=== PATIENT | female | born 1990 | race Asian ===

== ENCOUNTER → 2020-08-06 15:43 | Outpatient (BNVA) | payer BC, SELFPAY | PROVIDERS: Visit Provider Nurse Practitioner Family | DX: Z20.828 Contact with and (suspected) exposure to other viral communicable diseases (principal); J06.9 Acute upper respiratory infection, unspecified | CPT/HCPCS: 87635 ==

== ENCOUNTER → 2022-08-11 14:00 | Outpatient (BNVA) | payer OTHER, SELFPAY | PROVIDERS: Visit Provider Nurse Practitioner Women's Health | DX: Z34.90 Encounter for supervision of normal pregnancy, unspecified, unspecified trimester (principal); Z32.00 Encounter for pregnancy test, result unknown | CPT/HCPCS: 81025; 84315 ==

== ENCOUNTER → 2022-09-04 09:40 | Outpatient (BNVA) | payer OTHER, MEDICAID, SELFPAY | PROVIDERS: Visit Provider Obstetrics & Gynecology | DX: Z34.01 Encounter for supervision of normal first pregnancy, first trimester (principal) | CPT/HCPCS: 80307; 84315; 84443; 85027; 86592; 86762; 86803; 86850; 86900; 87086; 87340; 87491; 87591; 87624; 87661; 87806 ==

== ENCOUNTER → 2022-12-21 14:40 | Outpatient (BNVA) | payer OTHER, BC, MEDICAID, SELFPAY | PROVIDERS: Visit Provider Obstetrics & Gynecology | DX: Z34.00 Encounter for supervision of normal first pregnancy, unspecified trimester (principal) | CPT/HCPCS: 82950; 84315; 85025 ==

== ENCOUNTER → 2022-12-31 08:15 | Outpatient (BNVA) | payer OTHER, BC, MEDICAID, SELFPAY | PROVIDERS: Visit Provider Obstetrics & Gynecology | DX: Z34.00 Encounter for supervision of normal first pregnancy, unspecified trimester (principal) | CPT/HCPCS: 82951; 82952 ==

== ENCOUNTER 2023-01-14 16:05 | Outpatient (CLI) | payer OTHER, BC, MEDICAID, SELFPAY ==
[2023-01-14 16:13] VITALS: BP 109/76; PULSE 95
[2023-01-14 16:33] VITALS: BP 118/78; PULSE 81
[2023-01-14 16:55] VITALS: BP 118/78; PULSE 81
== END 2023-01-14 16:50 | disposition home or self-care (01) ==
LOC: OPOB 16:09 → OBGYN 16:10
PROVIDERS: Visit Provider Obstetrics & Gynecology
DX: Z36.9 Encounter for antenatal screening, unspecified (principal)
CPT/HCPCS: 59025; 84315; 99211

== ENCOUNTER 2023-01-21 15:04 | Outpatient (CLI) | payer OTHER, BC, MEDICAID, SELFPAY ==
[2023-01-21 15:04] VITALS: BMI 25.7
[2023-01-21 15:15] VITALS: RESP 17
[2023-01-21 15:18] VITALS: BP 122/75; PULSE 89
[2023-01-21 15:38] VITALS: BP 115/77; PULSE 93
== END 2023-01-21 15:52 | disposition home or self-care (01) ==
LOC: OPOB 15:07 → OBGYN 15:08
PROVIDERS: Visit Provider Obstetrics & Gynecology
DX: O24.419 Gestational diabetes mellitus in pregnancy, unspecified control (principal); Z3A.00 Weeks of gestation of pregnancy not specified
CPT/HCPCS: 59025; 99211

== ENCOUNTER 2023-01-28 16:06 | Outpatient (CLI) | payer OTHER, BC, MEDICAID, SELFPAY ==
[2023-01-28 16:10] VITALS: BMI 25.7
[2023-01-28 16:24] VITALS: BP 115/75; PULSE 90
== END 2023-01-28 16:53 | disposition home or self-care (01) ==
LOC: OPOB 16:09 → OBGYN 16:13
PROVIDERS: Visit Provider Obstetrics & Gynecology
DX: O24.419 Gestational diabetes mellitus in pregnancy, unspecified control (principal); Z3A.00 Weeks of gestation of pregnancy not specified
CPT/HCPCS: 59025; 84315; 85025

== ENCOUNTER 2023-02-04 16:20 | Outpatient (CLI) | payer OTHER, BC, MEDICAID, SELFPAY ==
[2023-02-04 16:20] VITALS: BMI 25.7
[2023-02-04 16:32] VITALS: BP 126/74; PULSE 86; TEMP 36.6
[2023-02-04 16:49] VITALS: RESP 16
[2023-02-04 17:00] VITALS: BP 126/74; PULSE 86; RESP 16; TEMP 36.6
== END 2023-02-04 17:00 | disposition home or self-care (01) ==
LOC: OPOB 16:24 → OBGYN 16:25
PROVIDERS: Visit Provider Obstetrics & Gynecology
DX: O24.419 Gestational diabetes mellitus in pregnancy, unspecified control (principal); Z3A.00 Weeks of gestation of pregnancy not specified
CPT/HCPCS: 59025; 99211

== ENCOUNTER 2023-02-11 16:00 | Outpatient (CLI) | payer OTHER, BC, MEDICAID, SELFPAY ==
[2023-02-11 16:00] VITALS: BMI 26.5
[2023-02-11 16:17] VITALS: BP 128/79; PULSE 85
[2023-02-11 16:37] VITALS: BP 114/76; PULSE 86
== END 2023-02-11 16:45 | disposition home or self-care (01) ==
LOC: OPOB 16:06 → OBGYN 16:07
PROVIDERS: Visit Provider Obstetrics & Gynecology
DX: O24.419 Gestational diabetes mellitus in pregnancy, unspecified control (principal); Z3A.00 Weeks of gestation of pregnancy not specified
CPT/HCPCS: 59025; 84315

== ENCOUNTER 2023-02-18 15:52 | Outpatient (CLI) | payer OTHER, BC, MEDICAID, SELFPAY ==
[2023-02-18 15:52] VITALS: BMI 27.0
[2023-02-18 16:06] VITALS: BP 120/75; PULSE 91
[2023-02-18 16:21] VITALS: BP 119/73; PULSE 100
[2023-02-18 16:25] VITALS: RESP 17
== END 2023-02-18 16:30 | disposition home or self-care (01) ==
LOC: OPOB 15:57 → OBGYN 15:58
PROVIDERS: Visit Provider Obstetrics & Gynecology
DX: O24.419 Gestational diabetes mellitus in pregnancy, unspecified control (principal); Z3A.00 Weeks of gestation of pregnancy not specified
CPT/HCPCS: 59025

== ENCOUNTER → 2023-02-19 08:55 | Outpatient (BNVA) | payer OTHER, BC, MEDICAID, SELFPAY | PROVIDERS: Visit Provider Obstetrics & Gynecology | DX: Z01.419 Encounter for gynecological examination (general) (routine) without abnormal findings (principal); Z34.00 Encounter for supervision of normal first pregnancy, unspecified trimester | CPT/HCPCS: 84315; 87081 ==

== ENCOUNTER 2023-02-25 16:20 | Outpatient (CLI) | payer OTHER, BC, MEDICAID, SELFPAY ==
[2023-02-25 16:29] VITALS: BP 130/84; PULSE 91
[2023-02-25 16:34] VITALS: RESP 15
[2023-02-25 16:35] VITALS: BMI 26.9
[2023-02-25 16:44] VITALS: BP 127/84; PULSE 78
[2023-02-25 16:55] VITALS: BP 125/84; PULSE 85
== END 2023-02-25 16:57 | disposition home or self-care (01) ==
LOC: OPOB 16:24 → OBGYN 16:25
PROVIDERS: Visit Provider Obstetrics & Gynecology
DX: O24.419 Gestational diabetes mellitus in pregnancy, unspecified control (principal); Z3A.00 Weeks of gestation of pregnancy not specified
CPT/HCPCS: 59025; 84315

== ENCOUNTER 2023-03-04 17:02 | Outpatient (CLI) | payer OTHER, BC, MEDICAID, SELFPAY ==
[2023-03-04 17:02] VITALS: BMI 27.3
[2023-03-04 17:27] VITALS: BP 114/76; PULSE 104
[2023-03-04 17:42] VITALS: BP 112/75; PULSE 109
[2023-03-04 17:57] VITALS: BP 119/80; PULSE 104
== END 2023-03-04 18:03 | disposition home or self-care (01) ==
LOC: OPOB 17:18 → OBGYN 17:22
PROVIDERS: Visit Provider Obstetrics & Gynecology
DX: O24.419 Gestational diabetes mellitus in pregnancy, unspecified control (principal); Z3A.00 Weeks of gestation of pregnancy not specified
CPT/HCPCS: 59025; 84315

== ENCOUNTER 2023-03-07 08:19 | Inpatient (IN) | payer OTHER, BC, MEDICAID, SELFPAY ==
[2023-03-07] VITALS (19 sets, daily range): BP systolic 112–139; BP diastolic 58–82; PULSE 85–109; RESP 16; BMI 27.4
[2023-03-07 09:50] LABS: Basophils % 0.7 %; Eosinophils # 0.4 10^3/uL (0.0-0.8); Eosinophils % 6.7 %; Hemoglobin 22.3 g/dL (11.5-15.3); Lymphocytes # 0.5 10^3/uL (0.8-4.8); Lymphocytes % 8.3 %; Mean Corpuscular HGB Conc 32.8 g/dL (30.0-36.0); Mean Corpuscular Hemoglobin 29.9 pg (28.0-34.0); Mean Corpuscular Volume 91.3 fl (81-99); Mean Platelet Volume 11.1 fL (7.4-10.4); Monocytes # 0.2 10^3/uL (0.2-0.9); Monocytes % 4.4 %; Neutrophils # 4.27 10^3/uL (1.8-7.7); Nucleated Red Blood Cells % 0 %; Platelet Count 44 10^3/cmm (130-400); Red Blood Count 7.45 10^6/uL (4.1-5.3); White Blood Count 5.4 10^3/uL (4.0-10.0)
[2023-03-07] MEDS: dextrose 5%-lactated ringers 1,000 ML 125 ML IV (09:56)
[2023-03-07] MEDS: miSOPROStol 100 mcg tablet 25 MCG VAGINAL ×3 (09:56→18:11)
[2023-03-07] MEDS: ampicillin 2,000 MG in sodium chloride 0.9% (plus) 50 ML 100 MG IV (09:56)
[2023-03-07 12:59] LABS: Monocytes % 5.1 %; Nucleated Red Blood Cells % 0 %
[2023-03-07 13:07] LABS: Basophils # 0.1 10^3/uL (0.0-0.1); Basophils % 0.9 %; Eosinophils # 0.5 10^3/uL (0.0-0.8); Eosinophils % 4.9 %; Lymphocytes # 1.5 10^3/uL (0.8-4.8); Lymphocytes % 14.3 %; Mean Corpuscular HGB Conc 31.5 g/dL (30.0-36.0); Mean Corpuscular Hemoglobin 29.8 pg (28.0-34.0); Mean Corpuscular Volume 94.7 fl (81-99); Mean Platelet Volume 11.7 fL (7.4-10.4); Monocytes # 0.5 10^3/uL (0.2-0.9); Neutrophils % 73.7 %; Red Blood Count 4.19 10^6/uL (4.1-5.3); Red Cell Distribution Width 13.3 % (12.1-15.1); White Blood Count 10.3 10^3/uL (4.0-10.0)
[2023-03-07 13:11] LABS: Hematocrit 39.7 % (37.0-47.0)
[2023-03-07 13:15] LABS: Hemoglobin 12.5 g/dL (11.5-15.3)
[2023-03-07 13:21] LABS: Platelet Count 182 10^3/cmm (130-400)
[2023-03-07] MEDS: ampicillin 1,000 MG in sodium chloride 0.9% (plus) 50 ML 100 MG IV ×3 (14:09→22:15)
--- NOTE | 2023-03-07 15:58 | PM.OPHPUD ---
Labor & Delivery H&P Update Date of Procedure: March 07, 2023 Date H&P Performed: 03/05/23 H&P update information: I have reviewed H&P completed within last 30 days, I have examined patient prior to procedure and No changes to prior documentation Admission Diagnosis: @ 39w0d, GDM, GBS positive, anxiety Related Problem List Diagnoses (1) GBS (group B Streptococcus carrier), +RV culture, currently : (2) Gestational diabetes: (3) Supervision of normal first : (4) Anxiety:
[2023-03-08] VITALS (81 sets, daily range): BP systolic 104–183; BP diastolic 55–86; PULSE 77–125; RESP 16; TEMP 36.9–37.9; O2SAT 92–100
[2023-03-08] MEDS: ampicillin 1,000 MG in sodium chloride 0.9% (plus) 50 ML 100 MG IV ×4 (02:14→15:38)
[2023-03-08 03:34] LABS: Glucose Point of Care 113 mg/dL (70-110)
[2023-03-08] MEDS: dextrose 5%-lactated ringers 1,000 ML 125 ML IV (06:07)
[2023-03-08 09:25] LABS: Glucose Point of Care 87 mg/dL (70-110)
--- NOTE | 2023-03-08 14:05 | ANES.PREANE2 ---
Pre-Anesthetic Assessment Height/Weight: Height 1.6 m Weight 70.307 kg Temp Pulse Resp BP Pulse Ox O2 Del Method 98.4 F 93 16 121/65 92 Room Air 03/08/23 00:11 03/08/23 13:59 03/08/23 08:19 03/08/23 13:59 03/08/23 13:51 03/07/23 08:23 epidural Familial anesthetic complications: none Was Beta Mick taken within 24 hours: N/A Was Clonidine taken within 24 hours: N/A Social No alcohol and No tobacco Exam alert, oriented x 3, clear to auscultation bilaterally and regular rate & rhythm Airway Mallampati: Class I Dentition: full Metabolic Diabetes Mellitus (gestational) Anesthetic Plan ASA status: 3 Anesthesia: Regional (specify below) Risk of > 500 ml blood loss (7ml/kg in children): Yes, adequate IV access and fluids planned Medications/Allergies Home Medications Medication Instructions Recorded Confirmed Last Taken Type PNV 153-FA 400 mcg-om3 35 mg-dha tab PO 09/04/22 03/04/23 Unknown History 25 mg-epa 5 mg-fish oil chew tablet ( Gummies) ferrous sulfate 325 mg (65 mg 325 mg PO DAILY 09/04/22 03/04/23 Unknown History iron) tablet buspirone 5 mg tablet 5 mg PO BID #60 tabs 11/30/22 03/04/23 Unknown Rx blood sugar diagnostic (Accu-Chek #100 ea 01/01/23 03/04/23 Unknown Rx Guide test strips) lancets 31 gauge (Comfort Touch #100 ea 01/01/23 03/04/23 Unknown Rx Ultra Thin Lancets) blood-glucose meter (Accu-Chek #1 ea 01/27/23 03/04/23 Unknown Rx Guide Glucose Meter) Allergies Allergy/AdvReac Type Severity Reaction Status Date / Time No Known Allergies Allergy Verified 02/25/23 16:12 Current Medications Generic Name Dose Route Start Last Admin Trade Name Freq PRN Reason Stop Dose Admin Dextrose/Lactated Ringer's 1,000 mls @ 125 mls/hr 03/07/23 08:30 03/08/23 06:07 Dextrose 5%-Lactated Ringers IV 125 mls/hr .Q8H TIERRA Administration Ampicillin Sodium 1,000 mg/ 50 mls @ 100 mls/hr 03/07/23 12:30 03/08/23 11:08 Sodium Chloride IV 100 mls/hr Q4H TIERRA Administration Protocol Oxytocin 30 unit/ Sodium 503 mls @ 1 mls/hr 03/08/23 00:30 03/08/23 06:40 Chloride IV 5 mls/hr .Q24H TIERRA 5 mls/hr Titration Protocol Misoprostol 25 mcg 03/07/23 09:22 03/07/23 18:11 Misoprostol 100 Mcg Tablet VAGINAL 25 mcg Q4H PRN Administration cervical ripening PFSH Anesthesia Medical History No pertinent past medical history Surgical History History of rhinoplasty Family History Denies family history of Colon cancer Ovarian cancer Diabetes Heart disease Hypercholesteremia Breast cancer Hypertension Uterine cancer Thyroid disease Stroke Female Reproductive History : 1 Data Anesthesia 03/07/23 12:43 Short CBC 03/07/23 03/07/23 Range/Units 09:30 12:43 WBC 5.4 10.3 H (4.0-10.0) 10^3/uL Hgb 22.3 H 12.5 D (11.5-15.3) g/dL Hct 68.0 H 39.7 D (37.0-47.0) % MCV 91.3 94.7 (81-99) fl Plt Count 44 L 182 D (130-400) 10^3/cmm Neut % (Auto) 79.0 73.7 % Neut # (Auto) 4.27 7.60 (1.8-7.7) 10^3/uL Cardiac Studies: No Data to Display
--- NOTE | 2023-03-08 14:06 | ANES.PROC ---
Anesthesia Procedures Procedure/Date: 03/08/23 Epidural: Time Out Performed: Yes Consents Signed: Procedure Consent Consent: requested by attending/covering physician, from patient, from other, risks and benefits reviewed and patient agrees to proceed Lumbar Level: L3-L4 Epidural position: sitting Epidural procedure: sterile prep of area, 1% lidocaine to numb the area, 18 g needle, negative for paresthesia passed, neg for paresthesia, test dose given, 1.5% xylocaine 1:200k epi ( 5 cc), 0.2% Ropivacaine bolus ml (5 cc), placed PCEA, no systemic response, sterile dressing applied, L.U.D. no apparent complications and 0.2% Ropiavacaine @ mls/hr (10) Additional Comments: Ruth at 5 cm, threaded to 11 cm
[2023-03-08] MEDS: ROPivacaine syringe 100 MG/50 ML SYRINGE 10 MG EPIDURAL ×3 (14:30→21:47)
--- NOTE | 2023-03-08 16:13 | P.PN_ITS ---
Vitals/I&O/Wt Last Vital Signs Temp 98.4 F 03/08/23 00:11 Pulse 95 03/08/23 16:10 Resp 16 03/08/23 08:19 BP 129/64 03/08/23 16:10 Pulse Ox 92 03/08/23 13:51 O2 Del Method Room Air 03/07/23 08:23 03/08/23 03/08/23 03/08/23 06:59 14:59 22:59 Intake Total 115.334 / 1265.334 50 / 50 Output Total 100 / 100 Balance 15.334 / 1165.334 50 / 50 Weight last 48 hrs Weight 155 lb Physical Exam Narrative: The patient has received three doses of cytotec over night. She had low dose pitocin started. She has made some cervical change. She is now 3/75/-2. status continues to be overall very good. She has received multiple doses of ampicillin Const: COMMON NORMALS: no acute distress, average body habitus, patient or iented x3, no limitations, healthy appearing, alert and well nourished Extremity: COMMON NORMALS: no calf tenderness Neuro: COMMON NORMALS: patient oriented x3 SENSORIUM/ORIENTATION: Yes alert Data 03/07/23 12:43 A&P Assessment and plan (1) Supervision of normal first : AROM clear today continue with pitocin induction. anticipate normal spontaneous delivery Attestations Medical Necessity Statement*: The patient has yet to deliver. She will be here for two midnights, at least. Coding Level of Care Code Acute Code for Chg Fwd Diagnoses Supervision of normal first Z34.00
[2023-03-08] MEDS: acetaminophen 325 mg Tablet 650 MG PO (18:57)
[2023-03-08] MEDS: miSOPROStol 200 mcg Tablet 800 MCG PR (23:57)
[2023-03-08] MEDS: methylergonovine 0.2 mg/mL INJ 1 mL IM (23:59)
[2023-03-09] VITALS (12 sets, daily range): BP systolic 119–162; BP diastolic 60–96; PULSE 85–134; RESP 15–17; TEMP 36.4–36.9
--- NOTE | 2023-03-09 00:20 | PM.DELIVERY ---
Delivery Note: Date of delivery: March 09, 2023 Pre-delivery diagnoses: iup@ 39 weeks, 1 day. GDM, GBS positive Post-delivery diagnoses: same-delivered Procedure: with vacuum assist. Delivering Physician: Jazmin Estimated blood loss (mL): 200 Findings: term male in the straight OA presentation Pre-Delivery Course: The patient was admitted for induction at term. She received three doses of cytotec and then had pitocin started. She received GBS prophylaxis from the time of induction. AROM was performed at 3 cm dilation. She received an epidural for pain management. She had complete cervical dilation Delivery: The patient had complete cervical dilation and began to push. The baby began to have decelerations with pushing and the mother was not pushing effectively. She also stated that she was tired. I asked for permission to place the vacuum. The baby was in the +3 station. I placed the vacuum for 5 contractions. vacuum pressure was 20 mmHg. There was a pop off with the second contraction. Each contraction lasted less than 1 minute. I desufflated the vacuum between contractions. I moved the baby to a large crown, then I removed the vacuum to my table. On examination, there was ample room for the head. The mother could not push the head any further. She attempted for many contractions. I noticed meconium fluid, at this time. I then cut an episiotomy. The head immediately delivered in the straight OA position over a second degree episiotomy under epidural anesthesia. The shoulders and body delivered atraumatically. The baby was placed onto the mother's abdomen. The nose and mouth wree then bulb suctioned. The cord was clamped and cut. The placenta delivered spontaneously. It was inspected and found to be intact. Inspection of the perineum revealed a second-degree episiotomy without extension. It was repaired in the usual fashion. There was uterine atony after delivery of the placenta. 800 mcg of Cytotec was given orally, 1 dose of Methergine was given IM, 1 dose of TXA was given OV and a bolus of Pitocin was started. Finally the uterus clamped down and there was normal lochia. Estimated blood loss 200 mL. Apgars on baby were 8 at 1 minute and 9 at 5 minutes. Weight of baby is 7 pounds 11 ounces. Mother and baby were stable post delivery. History History History 1 Term 0 Miscarriages/Ectopic Living Children Coding Level of Care Code Acute Code for Chg Fwd Diagnoses
[2023-03-09] MEDS: docusate sodium 100 mg Capsule PO ×2 (10:53→22:19)
[2023-03-09] MEDS: prenatal vitamin Capsule 1 CAP PO (10:53)
[2023-03-09] MEDS: ibuprofen 800 mg tablet PO ×2 (10:53→22:19)
[2023-03-09 13:23] LABS: Hematocrit 32.5 % (37.0-47.0); Hemoglobin 10.6 g/dL (11.5-15.3); Mean Corpuscular HGB Conc 32.6 g/dL (30.0-36.0); Mean Corpuscular Hemoglobin 30.6 pg (28.0-34.0); Mean Corpuscular Volume 93.9 fl (81-99); Mean Platelet Volume 11.7 fL (7.4-10.4); Platelet Count 145 10^3/cmm (130-400); Red Blood Count 3.46 10^6/uL (4.1-5.3); Red Cell Distribution Width 13.3 % (12.1-15.1); White Blood Count 17.9 10^3/uL (4.0-10.0)
--- NOTE | 2023-03-09 20:24 | P.PN_ITS ---
Vitals/I&O/Wt Last Vital Signs Temp 98.1 F 03/10/23 04:00 Pulse 92 03/10/23 04:00 Resp 15 03/09/23 19:00 BP 118/75 03/10/23 04:00 Pulse Ox 92 03/08/23 13:51 O2 Del Method Room Air 03/07/23 08:23 [id number] 03/10/23 22:59 06:59 14:59 Intake Total 550 / 550 Balance 550 / 550 Physical Exam Narrative: the patient is doing well. no concerns. Const: COMMON NORMALS: average body habitus, patient oriented x3, no limitations, healthy appearing, alert and well nourished GENERAL APPEARANCE: cooperative, comfortable, well kempt and well developed ORIENTATIO N/CONSCIOUSNESS: Yes awake, Yes oriented to person, Yes oriented to place and Yes oriented to time Resp: COMMON NORMALS: normal respiratory effort EFFORT & INSPECTION: Yes able to speak in complete sentences GI: COMMON NORMALS: Soft to palpation and non-tender PALPATION: Yes Soft to palpation Extremity: COMMON NORMALS: no calf tenderness Neuro: COMMON NORMALS: patient oriented x3 SENSORIUM/ORIENTATION: Yes alert, Yes oriented to person, Yes oriented to place and Yes oriented to time Psych: APPEARANCE: Yes well kempt Urinary Catheter Management: Isidro: Cath Placed During This Visit: yes, but has since been removed by the nurse Reason for Continuing Indwelling Catheter: Required Immobilization for Trauma or Surgery or Anesthesia Urinary Catheter Date of Insertion: 03/08/23 Urinary Catheter Time of Insertion: 14:00 Date Urinary Catheter Removed: 03/08/23 Time Urinary Catheter Discontinued: 22:50 Data 03/09/23 12:31 Attestations Medical Necessity Statement*: the patient will be here two midnights Coding Level of Care Code Acute Code for Chg Fwd Diagnoses
[2023-03-10 04:00] VITALS: BP 118/75; PULSE 92; TEMP 36.7
--- NOTE | 2023-03-10 08:00 | ANE.PACU2 ---
Inpatient post-anesthesia follow up: Airway intact: Yes Vital signs: Temperature 97.6 F Pulse Rate 87 Respiratory Rate 15 Blood Pressure 136/85 Pulse Oximetry 92 Oxygen Delivery Me thod Room Air Oxygen Flow Rate Fraction of Inspir ed Oxygen Hydration adequate: Yes Nausea and vomiting: Yes Pain level: 1 Mental status: Baseline
[2023-03-10 09:37] VITALS: BP 128/85; PULSE 92
[2023-03-10] MEDS: docusate sodium 100 mg Capsule PO (09:38)
[2023-03-10] MEDS: prenatal vitamin Capsule 1 CAP PO (09:38)
[2023-03-10] MEDS: ibuprofen 800 mg tablet PO (09:38)
--- NOTE | 2023-03-10 13:26 | PM.DCS ---
Discharge Providers Date of Admission: 03/07/23 08:19 Date of Discharge: March 10, 2023 Attending Provider at Admission: Isabel Wu MD Attending Provider at Discharge: Isabel Wu MD Diagnoses at Discharge Discharge Diagnosis (1) Supervision of normal first : Status: Acute Reason for Visit Reason for Visit: IOL Physical Exam Narrative: the patient has no concerns today Const: COMMON NORMALS: no acute distress, average body habitus, patient oriented x3, no limitations, healthy appearing, alert and well nourished GENERAL APPEARANCE: cooperative, comfortable, well kempt and well developed ORIENTATION/CONSCIOUSNESS: Yes awake, Yes oriented to person, Yes oriented to place and Yes oriented to time Resp: COMMON NORMALS: normal respiratory effort EFFORT & INSPECTION: Yes able to speak in complete sentences GI: COMMON NORMALS: Soft to palpation and non-tender PALPATION: Yes Soft to palpation Extremity: COMMON NORMALS: no calf tenderness Neuro: COMMON NORMALS: patient oriented x3 SENSORIUM/ORIENTATION: Yes alert, Yes oriented to person, Yes oriented to place and Yes oriented to time Psych: APPEARANCE: Yes well kempt Urinary Catheter Management: Isidro: Cath Placed During This Visit: yes, but has since been removed by the nurse Reason for Continuing Indwelling Catheter: Required Immobilization for Trauma or Surgery or Anesthesia Urinary Catheter Date of Insertion: 03/08/23 Urinary Catheter Time of Insertion: 14:00 Date Urinary Catheter Removed: 03/08/23 Time Urinary Catheter Discontinued: 22:50 Discharge Data Studies Completed and Pending Laboratory Results WBC 17.9 10^3/uL (4.0-10.0) H 03/09/23 12:31 RBC 3.46 10^6/uL (4.1-5.3) L 03/09/23 12:31 Hgb 10.6 g/dL (11.5-15.3) L 03/09/23 12:31 Hct 32.5 % (37.0-47.0) L 03/09/23 12:31 MCV 93.9 fl (81-99) 03/09/23 12:31 MCH 30.6 pg (28.0-34.0) 03/09/23 12:31 MCHC 32.6 g/dL (30.0-36.0) 03/09/23 12:31 RDW 13.3 % (12.1-15.1) 03/09/23 12:31 Plt Count 145 10^3/cmm (130-400) 03/09/23 12:31 MPV 11.7 fL (7.4-10.4) H 03/09/23 12:31 Neut % (Auto) 73.7 % 03/07/23 12:43 Lymph % (Auto) 14.3 % 03/07/23 12:43 [place] % (Auto) 5.1 % 03/07/23 12:43 Eos % (Auto) 4.9 % 03/07/23 12:43 Baso % (Auto) 0.9 % 03/07/23 12:43 Neut # (Auto) 7.60 10^3/uL (1.8-7.7) 03/07/23 12:43 Lymph # (Auto) 1.5 10^3/uL (0.8-4.8) 03/07/23 12:43 [place] # (Auto) 0.5 10^3/uL (0.2-0.9) 03/07/23 12:43 Eos # (Auto) 0.5 10^3/uL (0.0-0.8) 03/07/23 12:43 Baso # (Auto) 0.1 10^3/uL (0.0-0.1) 03/07/23 12:43 Nucleated RBC % (auto) 0 % 03/07/23 12:43 Nucleated RBCs # 0.0 /100WBC 03/07/23 12:43 POC Glucose 87 mg/dL (70-110) 03/08/23 09:22 Vitals Last Vital Signs Temp 98.1 F 03/10/23 04:00 Pulse 92 03/10/23 04:00 Resp 15 03/09/23 19:00 BP 118/75 03/10/23 04:00 Pulse Ox 92 03/08/23 13:51 O2 Del Method Room Air 03/07/23 08:23 Discharge Plan Discharge Patient Disposition: Home Condition: Stable Prescriptions: Continued Gummies 400 mcg-35 mg- 25 mg-5 mg tablet,chewable PO ferrous sulfate 325 mg (65 mg iron) tablet 325 mg PO DAILY buspirone 5 mg tablet 5 mg PO BID Qty: 60 6RF (DME) Accu-Chek Guide test strips Strip See Rx Instructions .ROUTE .MEDSUPPLY Qty: 100 12RF Rx Instructions: As directed (DME) Comfort Touch Ult Thin Lancets 31 gauge misc See Rx Instructions .ROUTE .MEDSUPPLY Qty: 100 12RF Rx Instructions: As directed (DME) blood-glucose meter [Accu-Chek Guide Glucose Meter] Misc See Rx Instructions .ROUTE .MEDSUPPLY Qty: 1 12RF Rx Instructions: As directed Discharge Orders: Discharge Order (Routine); Ordered 03/10/23 Ordered By: Isabel Wu Patient Instructions: Depression (DC), Bleeding (DC), Preeclampsia and Eclampsia After Delivery (GEN), COVID-19 and (GEN), Hemorrhage (DC), OB Discharge Report, OB Food/Drug Interaction Guide, OB Care at Home, Opioid Safety, OB Home Care, OB Vaginal Deliveries - [facility], Abnormal Bleeding Activity Restrictions/Additional Instructions: Please call and set up a follow up appointment with an OBGYN in [facility]. You will need to be seen in 6 weeks for a visit. Discharge Attestations Time Spent in Discharge Care*: less than 30 min Quality Metrics Clinical Quality Measures [ No reported AMI, CVA or VTE this stay] Coding Level of Care Code Acute Code for Chg Fwd Diagnoses Supervision of normal first Z34.00
[2023-03-10 15:00] VITALS: BP 136/85; PULSE 87; TEMP 36.4
[2023-03-10 15:15] VITALS: BP 136/85; PULSE 87; TEMP 36.4
== END 2023-03-10 15:15 | disposition home or self-care (01) | DRG 807 ==
LOC: OPOB 03-08 06:49 → OBGYN 03-08 06:49
PROVIDERS: Admitting Provider Obstetrics & Gynecology; Visit Provider Obstetrics & Gynecology
DX: O24.429 Gestational diabetes mellitus in childbirth, unspecified control (principal); Z37.0 Single live birth; F41.9 Anxiety disorder, unspecified; O99.344 Other mental disorders complicating childbirth; O99.824 Streptococcus B carrier state complicating childbirth; Z3A.39 39 weeks gestation of pregnancy; O76 Abnormality in fetal heart rate and rhythm complicating labor and delivery
CPT/HCPCS: 36415; 36416; 51702; 59025; 59409; 82962; 85025; 85027; 96372; 98960; 99211; J0290; J2210; J2795; J7040; J7121